=== PATIENT | female | born 1975 | race African-American/Black ===

== ENCOUNTER 2020-09-09 12:31 | Inpatient (IN) | payer MEDICARE, MEDICAID ==
[~2020-09-09] VITALS: Ht 160 cm; Wt 88.5 kg
[~2020-09-09 12:31] MED LIST: SULF1TAB48 PO; albuterol inhaler; seroquel; tapazole; wellbutrin
[2020-09-09] MEDS ORDERED: LIDOCAINE HCL/PF 1% 2ML VIAL ONE (13:08)
[2020-09-09] MEDS ORDERED: AZITHROMYCIN 500 MG in DEXT 5% WATER 250 ML IV SCH (13:15)
[2020-09-09] MEDS ORDERED: CEFTRIAXONE 1 G PREMIX 50 ML IV ONE (13:15)
[2020-09-09] MEDS ORDERED: ALBUTEROL (0.5%) 2.5MG/0.5ML NEB HHN ONE (13:15)
[2020-09-09 13:46] LABS: BG BASE EXCESS -2.1 mmol/L (-2.0-2.0); BG CARBOXYHEMOGLOBIN 0.6 % (0.5-1.5); BG DEOXYHEMOGLOBIN 0.8 % (0.0-5.0); BG HCO3 ACT 21.5 mmol/L (22.0-26.0); BG METHEMOGLOBIN 0.5 % (0.0-1.5); BG OXYGEN SATURATION 99.2 % (92.0-98.5); BG OXYHEMOGLOBIN 98.1 % (94.0-97.0); BG PCO2 31.9 mmHg (35.0-45.0); BG PH 7.447 (7.350-7.450); BG PO2 206.7 mmHg (75.0-100.0); BG SAMPLE SITE RIGHT RADIAL; BG TOTAL HEMOGLOBIN 8.1 g/dL (12.0-18.0); BG VENT MODE HHN NEBULIZER
[2020-09-09 14:34] LABS: HEMATOCRIT. 26.3 % (36.0-48.0); HEMOGLOBIN. 7.5 g/dL (12.0-16.0); MEAN CORPUSCULAR HEMOGLOBIN 17.3 pg (28.0-32.0); MEAN CORPUSCULAR VOLUME 60.5 fL (81.0-99.0); MEAN PLATELET VOLUME 8.9 fl (7.4-10.4); PLATELET 89 x1000/uL (130-400); RED BLOOD CELL COUNT 4.35 mill/uL (4.2-5.4); RED CELL DISTRIBUTION WIDTH 18.1 % (11.6-14.6)
[2020-09-09 14:40] LABS: CHLORIDE 113 mEq/L (98-107)
[2020-09-09 14:42] LABS: D-DIMER 0.34 mg/L FEU (<0.50); INR 1.1; PROTHROMBIN TIME 12.2 sec (9.6-11.0)
[2020-09-09 15:55] LABS: PLATELET ESTIMATE DECREASED
[2020-09-09] MEDS ORDERED: FUROSEMIDE 20MG/2ML VIAL IVP NR (16:00)
[2020-09-09] MEDS ORDERED: ALBUTEROL (0.5%) 2.5MG/0.5ML NEB HHN PRN (19:45)
[2020-09-09 20:00] VITALS: BP 142/66
[2020-09-09] MEDS: DOCUSATE SODIUM SUGAR FREE 100MG/10ML UDC PO SCH (20:00)
[2020-09-09 20:30] VITALS: BP 142/66
[2020-09-09] MEDS ORDERED: ONDANSETRON HCL 4MG/2ML INJ IV PRN (20:30)
[2020-09-09] MEDS ORDERED: ACETAMINOPHEN 325MG TABLET PO PRN (20:30)
[2020-09-09 20:38] LABS: TOTAL IRON BINDING CAPACITY 340 ug/dL (250-450)
[2020-09-09 20:51] LABS: T4 FREE > 8.00 ng/dL (0.76-1.46)
[2020-09-09] MEDS: METHYLPREDNISOLONE SOD SUCC 125 MG/2 ML VIAL IV SCH (22:14)
[2020-09-10] VITALS (11 sets, daily range): BP systolic 115–168; BP diastolic 56–92
[2020-09-10] MEDS: ALBUTEROL (0.083%) 2.5MG/3ML NEB HHN PRN ×2 (03:02→08:11)
[2020-09-10] MEDS: METHYLPREDNISOLONE SOD SUCC 125 MG/2 ML VIAL IV SCH (05:51)
[2020-09-10 05:58] LABS: HEMATOCRIT. 25.1 % (36.0-48.0); HEMOGLOBIN. 7.5 g/dL (12.0-16.0); MEAN CORPUSCULAR HEMOGLOBIN 17.6 pg (28.0-32.0); RED BLOOD CELL COUNT 4.26 mill/uL (4.2-5.4); RED CELL DISTRIBUTION WIDTH 18.3 % (11.6-14.6)
[2020-09-10] MEDS ORDERED: METHIMAZOLE 5MG TABLET PO SCH (09:00)
[2020-09-10] MEDS: DOCUSATE SODIUM SUGAR FREE 100MG/10ML UDC PO SCH (09:00)
[2020-09-10] MEDS ORDERED: ENOXAPARIN 40MG/0.4ML SYR SUBCUT SCH (09:00)
[2020-09-10 11:01] LABS: PLATELET ESTIMATE DECREASED
[2020-09-10 11:02] LABS: MEAN PLATELET VOLUME 9.4 fl (7.4-10.4); PLATELET 85 x1000/uL (130-400)
[2020-09-10] MEDS: METHIMAZOLE 5MG TABLET PO SCH ×2 (12:54→17:24)
[2020-09-10] MEDS: FUROSEMIDE 40MG/4ML VIAL IVP SCH ×2 (12:54→17:23)
[2020-09-10] MEDS: FERROUS SULFATE 325MG TABLET PO SCH ×2 (12:54→17:24)
[2020-09-10 13:02] LABS: CLARITY URINE CLEAR (CLEAR); COLOR URINE DARK YELLOW (YELLOW); KETONES URINE TRACE (NEGATIVE); LEUKOCYTE ESTERASE URINE NEGATIVE (NEGATIVE); NITRITE URINE NEGATIVE (NEGATIVE); OCCULT BLOOD URINE NEGATIVE (NEGATIVE); PH URINE 5.5 (4.5-8.0); PROTEIN URINE 1+ (NEGATIVE); SPECIFIC GRAVITY URINE 1.025 (1.005-1.030)
[2020-09-10] MEDS: LOSARTAN POTASSIUM 25 MG TABLET PO SCH (14:00)
[2020-09-10] MEDS: CEFTRIAXONE 1,000 MG in DEXTROSE 5% WATER 50 ML IV SCH (14:00)
[2020-09-10 18:01] LABS: FOLIC ACID (FOLATE) SERUM 6.8 ng/mL (>5.38)
[2020-09-10] MEDS ORDERED: GUAIFENESIN-DM 200MG-20MG/10ML UDC PO PRN (19:15)
[2020-09-10] MEDS: PREDNISONE 20MG TABLET PO SCH (22:09)
[2020-09-10 23:37] LABS: HEMATOCRIT 27.4 % (36.0-48.0); HEMOGLOBIN 8.2 g/dL (12.0-16.0)
[2020-09-11] VITALS: BP 113/59
[2020-09-11] MEDS: IPRATROPIUM/ALBUTEROL 0.5-3(2.5)MG/3ML NEB HHN SCH ×3 (02:40→20:44)
[2020-09-11 04:00] VITALS: BP 136/70
[2020-09-11] MEDS: FUROSEMIDE 40MG/4ML VIAL IVP SCH ×2 (06:06→17:37)
[2020-09-11] MEDS: FERROUS SULFATE 325MG TABLET PO SCH ×3 (08:03→17:37)
[2020-09-11] MEDS: PANTOPRAZOLE SODIUM 40 MG/VIAL IV SCH (08:38)
[2020-09-11] MEDS: PREDNISONE 20MG TABLET PO SCH ×2 (08:38→17:37)
[2020-09-11] MEDS: LOSARTAN POTASSIUM 25 MG TABLET PO SCH (08:38)
[2020-09-11] MEDS: DOCUSATE SODIUM SUGAR FREE 100MG/10ML UDC PO SCH (08:38)
[2020-09-11] MEDS: METHIMAZOLE 5MG TABLET PO SCH ×3 (08:38→17:37)
[2020-09-11 12:00] VITALS: BP 132/73
[2020-09-11] MEDS: CEFTRIAXONE 1,000 MG in DEXTROSE 5% WATER 50 ML IV SCH (13:37)
[2020-09-11 16:00] VITALS: BP 139/75
[2020-09-11 16:43] LABS: CHLORIDE 113 mEq/L (98-107)
[2020-09-11 16:53] LABS: INR 1.1; PROTHROMBIN TIME 12.1 sec (9.6-11.0)
[2020-09-11 18:18] LABS: HEMATOCRIT. 30.8 % (36.0-48.0); MEAN CORPUSCULAR VOLUME 61.6 fL (81.0-99.0); RED BLOOD CELL COUNT 4.99 mill/uL (4.2-5.4); RED CELL DISTRIBUTION WIDTH 20.1 % (11.6-14.6)
[2020-09-11 19:35] LABS: PLATELET ESTIMATE SLIGHTLY DECREASED
[2020-09-11 20:00] VITALS: BP 146/87
[2020-09-11 20:55] LABS: MEAN PLATELET VOLUME 9.3 fl (7.4-10.4); PLATELET 110 x1000/uL (130-400)
[2020-09-11] MEDS: METOPROLOL TARTRATE 25MG TABLET PO SCH (21:03)
[2020-09-12] VITALS: BP 154/77
[2020-09-12] MEDS: IPRATROPIUM/ALBUTEROL 0.5-3(2.5)MG/3ML NEB HHN SCH ×4 (01:29→21:37)
[2020-09-12 04:00] VITALS: BP 130/88
[2020-09-12] MEDS: FUROSEMIDE 40MG/4ML VIAL IVP SCH ×2 (05:43→18:15)
[2020-09-12 08:00] VITALS: BP 131/76
[2020-09-12] MEDS: PANTOPRAZOLE SODIUM 40 MG/VIAL IV SCH (09:03)
[2020-09-12] MEDS: LOSARTAN POTASSIUM 25 MG TABLET PO SCH (09:04)
[2020-09-12] MEDS: METHIMAZOLE 5MG TABLET PO SCH ×3 (09:04→18:15)
[2020-09-12] MEDS: METOPROLOL TARTRATE 25MG TABLET PO SCH ×2 (09:04→21:22)
[2020-09-12] MEDS: PREDNISONE 20MG TABLET PO SCH ×2 (09:04→18:15)
[2020-09-12] MEDS: DOCUSATE SODIUM SUGAR FREE 100MG/10ML UDC PO SCH (09:05)
[2020-09-12] MEDS: FERROUS SULFATE 325MG TABLET PO SCH ×3 (09:07→18:15)
[2020-09-12] MEDS ORDERED: CYANOCOBALAMIN 1000MCG TABLET PO SCH (09:15)
[2020-09-12] MEDS ORDERED: LIDOCAINE HCL 1% 20ML VIAL (Pyxis) INJ ONE (10:19)
[2020-09-12 12:00] VITALS: BP 134/80
[2020-09-12] MEDS ORDERED: IOHEXOL-350 100 ML BOTTLE ONE (13:34)
[2020-09-12 14:05] LABS: HCG SCREEN NEGATIVE
[2020-09-12 14:16] LABS: CHLORIDE 108 mEq/L (98-107)
[2020-09-12 14:32] LABS: HAPTOGLOBIN 99 mg/dL (30-200)
[2020-09-12] MEDS: SILDENAFIL CITRATE 20MG TABLET PO SCH ×2 (15:33→21:22)
[2020-09-12] MEDS: CEFTRIAXONE 1,000 MG in DEXTROSE 5% WATER 50 ML IV SCH (15:33)
[2020-09-12 16:00] VITALS: BP 135/78
[2020-09-12 16:02] LABS: HEMATOCRIT. 31.6 % (36.0-48.0); HEMOGLOBIN. 9.4 g/dL (12.0-16.0); MEAN CORPUSCULAR HEMOGLOBIN 18.3 pg (28.0-32.0); MEAN CORPUSCULAR VOLUME 61.7 fL (81.0-99.0); PLATELET 124 x1000/uL (130-400); RED BLOOD CELL COUNT 5.11 mill/uL (4.2-5.4); RED CELL DISTRIBUTION WIDTH 19.9 % (11.6-14.6)
[2020-09-12 18:06] LABS: NUCLEATED RED BLOOD CELLS 1 /100 WBC; PLATELET ESTIMATE SLIGHTLY DECREASED
[2020-09-12 20:00] VITALS: BP 123/64
[2020-09-13] VITALS: BP 115/63
[2020-09-13] MEDS: IPRATROPIUM/ALBUTEROL 0.5-3(2.5)MG/3ML NEB HHN SCH ×4 (02:01→20:20)
[2020-09-13 04:00] VITALS: BP 110/63
[2020-09-13 05:09] LABS: HIV SCREEN 4G Non Reactive (Non Reactive)
[2020-09-13] MEDS: FUROSEMIDE 40MG/4ML VIAL IVP SCH ×2 (06:46→17:15)
[2020-09-13] MEDS: SILDENAFIL CITRATE 20MG TABLET PO SCH ×3 (06:46→21:35)
[2020-09-13 08:00] VITALS: BP 118/58
[2020-09-13] MEDS: METOPROLOL TARTRATE 25MG TABLET PO SCH ×2 (09:00→21:36)
[2020-09-13] MEDS: LOSARTAN POTASSIUM 25 MG TABLET PO SCH (09:00)
[2020-09-13] MEDS: DOCUSATE SODIUM SUGAR FREE 100MG/10ML UDC PO SCH (09:00)
[2020-09-13] MEDS: PANTOPRAZOLE SODIUM 40 MG/VIAL IV SCH (09:09)
[2020-09-13] MEDS: FERROUS SULFATE 325MG TABLET PO SCH ×3 (09:10→17:40)
[2020-09-13] MEDS: PREDNISONE 20MG TABLET PO SCH ×2 (09:10→17:00)
[2020-09-13] MEDS: METHIMAZOLE 5MG TABLET PO SCH ×3 (09:10→17:00)
[2020-09-13 12:00] VITALS: BP 120/60
[2020-09-13] MEDS: CEFTRIAXONE 1,000 MG in DEXTROSE 5% WATER 50 ML IV SCH (12:54)
[2020-09-13 16:00] VITALS: BP 113/62
[2020-09-13 20:00] VITALS: BP 138/69
[2020-09-14] VITALS: BP 113/59
[2020-09-14] MEDS: IPRATROPIUM/ALBUTEROL 0.5-3(2.5)MG/3ML NEB HHN SCH (00:19)
[2020-09-14 04:00] VITALS: BP 147/79
[2020-09-14] MEDS: SILDENAFIL CITRATE 20MG TABLET PO SCH (06:25)
[2020-09-14] MEDS: FUROSEMIDE 40MG/4ML VIAL IVP SCH (06:25)
[2020-09-14 08:00] VITALS: BP 109/51
[2020-09-14 08:00] LABS: CHLORIDE 108 mEq/L (98-107)
[2020-09-14 08:01] LABS: HEMATOCRIT. 32.4 % (36.0-48.0); HEMOGLOBIN. 9.7 g/dL (12.0-16.0); MEAN CORPUSCULAR HEMOGLOBIN 18.2 pg (28.0-32.0); MEAN CORPUSCULAR VOLUME 60.6 fL (81.0-99.0); MEAN PLATELET VOLUME 9.4 fl (7.4-10.4); RED BLOOD CELL COUNT 5.34 mill/uL (4.2-5.4); RED CELL DISTRIBUTION WIDTH 19.2 % (11.6-14.6)
[2020-09-14] MEDS: PANTOPRAZOLE SODIUM 40 MG/VIAL IV SCH (08:02)
[2020-09-14] MEDS: METHIMAZOLE 5MG TABLET PO SCH (08:03)
[2020-09-14] MEDS: FERROUS SULFATE 325MG TABLET PO SCH (08:06)
[2020-09-14] MEDS: DOCUSATE SODIUM SUGAR FREE 100MG/10ML UDC PO SCH (09:00)
[2020-09-14] MEDS: METOPROLOL TARTRATE 25MG TABLET PO SCH (09:00)
[2020-09-14] MEDS ORDERED: PREDNISONE 20MG TABLET PO SCH (09:00)
[2020-09-14] MEDS: LOSARTAN POTASSIUM 25 MG TABLET PO SCH (09:00)
[2020-09-14] MEDS ORDERED: POTASSIUM CHLORIDE 20MEQ TABLET SR PO SCH (09:15)
[2020-09-14] MEDS ORDERED: LOSA25TA3 PO (09:26)
[2020-09-14] MEDS ORDERED: P20 PO (09:26)
[2020-09-14] MEDS ORDERED: FERR325T23 PO (09:26)
[2020-09-14] MEDS ORDERED: REV20 PO (09:26)
[2020-09-14] MEDS ORDERED: TAP5 PO (09:26)
[2020-09-14] MEDS ORDERED: CYAN-50 PO (09:26)
[2020-09-14] MEDS ORDERED: METO25TA6 PO (09:26)
[2020-09-14] MEDS ORDERED: FUROSEMIDE 40MG TABLET PO SCH (09:30)
[2020-09-14 10:08] VITALS: BP 109/51
[2020-09-14 13:25] LABS: PLATELET ESTIMATE NORMAL
[2020-09-14 13:27] LABS: PLATELET 138 x1000/uL (130-400)
[2020-09-15 08:10] LABS: HGB A2 2.6 % (1.8-3.2)
== END 2020-09-14 11:20 | disposition home or self-care (01) | DRG 291 ==
LOC: ER 12:31 → 8WST 15:55 → ENRESERV 19:15
PROVIDERS: ADMIT Internal Medicine; ATTEND Internal Medicine
PROC: 30233N1 Transfusion of Nonautologous Red Blood Cells into Peripheral Vein, Percutaneous Approach (ICD-10-PCS; principal; 2020-09-10)
PROC: 02HV33Z Insertion of Infusion Device into Superior Vena Cava, Percutaneous Approach (ICD-10-PCS; 2020-09-12)
PROC: B548ZZA Ultrasonography of Superior Vena Cava, Guidance (ICD-10-PCS; 2020-09-12)
PROC: B5181ZA Fluoroscopy of Superior Vena Cava using Low Osmolar Contrast, Guidance (ICD-10-PCS; 2020-09-12)
DX: I50.810 Right heart failure, unspecified (principal); J96.20 Acute and chronic respiratory failure, unspecified whether with hypoxia or hypercapnia; J45.901 Unspecified asthma with (acute) exacerbation; R17 Unspecified jaundice; D61.818 Other pancytopenia; D50.9 Iron deficiency anemia, unspecified; E03.9 Hypothyroidism, unspecified; I27.21 Secondary pulmonary arterial hypertension; E66.01 Morbid (severe) obesity due to excess calories; E88.09 Other disorders of plasma-protein metabolism, not elsewhere classified; E05.20 Thyrotoxicosis with toxic multinodular goiter without thyrotoxic crisis or storm; F41.9 Anxiety disorder, unspecified; H54.8 Legal blindness, as defined in USA; I27.81 Cor pulmonale (chronic); R00.0 Tachycardia, unspecified; Z82.49 Family history of ischemic heart disease and other diseases of the circulatory system; Z90.49 Acquired absence of other specified parts of digestive tract; Z79.899 Other long term (current) drug therapy; Z80.3 Family history of malignant neoplasm of breast; Z81.3 Family history of other psychoactive substance abuse and dependence; Z81.8 Family history of other mental and behavioral disorders; Z82.3 Family history of stroke; Z85.41 Personal history of malignant neoplasm of cervix uteri; Z91.19 Patient's noncompliance with other medical treatment and regimen; Z68.34 Body mass index [BMI] 34.0-34.9, adult; H40.9 Unspecified glaucoma; H05.20 Unspecified exophthalmos
CPT/HCPCS: 36415; 36573; 36600; 71045; 71275; 76536; 80048; 80053; 80061; 81003; 82270; 82375; 82533; 82607; 82728; 82746; 82805; 83010; 83021; 83036; 83520; 83540; 83550; 83615; 83735; 83880; 84439; 84443; 84480; 84481; 84484; 84703; 85014; 85018; 85025; 85044; 85049; 85379; 85384; 85660; 86850; 86880; 86900; 86920; 87389; 87426; 93005; 93306; 94640; 99285; C1725; C1769; C9113; J0456; J0696; J1940; J2930; J3490; J7060; J7512; P9016; Q9967

== ENCOUNTER → 2020-10-05 | Outpatient (CLI) | payer MEDICARE, MEDICAID ==
[~2020-10-05] MED LIST changes: +CYAN-50 PO; +FERR325T23 PO; +LOSA25TA3 PO; +METO25TA6 PO; +P20 PO; +REV20 PO; -SULF1TAB48 PO; +TAP5 PO
== END | disposition home or self-care (01) ==
LOC: NM 07:47
PROVIDERS: ATTEND Internal Medicine Endocrinology, Diabetes & Metabolism
DX: E04.2 Nontoxic multinodular goiter (principal)
CPT/HCPCS: 78014; A9516

== ENCOUNTER → 2020-10-27 | Outpatient (CLI) | payer MEDICARE, MEDICAID | END | disposition home or self-care (01) | LOC: NM 07:32 | PROVIDERS: ATTEND Internal Medicine Endocrinology, Diabetes & Metabolism | DX: E05.90 Thyrotoxicosis, unspecified without thyrotoxic crisis or storm (principal) | CPT/HCPCS: 79005; A9517 ==

== ENCOUNTER 2021-03-21 20:15 | Emergency (ER) | payer MEDICARE, MEDICAID ==
[~2021-03-21] VITALS: Ht 170.2 cm; Wt 82.0 kg
[2021-03-21] MEDS ORDERED: ONDANSETRON HCL 4MG/2ML INJ IV STA (20:27)
[2021-03-21] MEDS ORDERED: FENTANYL CITRATE/PF 50MCG/ML 2ML VIAL IV ONE (20:30)
[2021-03-21 21:52] LABS: CHLORIDE 109 mEq/L (98-107)
[2021-03-21 21:54] LABS: HCG SCREEN NEGATIVE
[2021-03-21 21:57] LABS: HEMATOCRIT. 29.7 % (36.0-48.0); HEMOGLOBIN. 9.1 g/dL (12.0-16.0); MEAN CORPUSCULAR HEMOGLOBIN 20.5 pg (28.0-32.0); MEAN CORPUSCULAR VOLUME 67.3 fL (81.0-99.0); MEAN PLATELET VOLUME 9.2 fl (7.4-10.4); PLATELET 162 x1000/uL (130-400); RED BLOOD CELL COUNT 4.41 mill/uL (4.2-5.4); RED CELL DISTRIBUTION WIDTH 16.2 % (11.6-14.6)
[2021-03-21 23:05] LABS: PLATELET ESTIMATE NORMAL
[2021-03-22 00:31] LABS: T4 FREE 4.59 ng/dL (0.76-1.46)
[2021-03-22 01:29] LABS: HEMATOCRIT 26.2 % (36.0-48.0); HEMOGLOBIN 8.2 g/dL (12.0-16.0); MEAN CORPUSCULAR HEMOGLOBIN 20.7 pg (28.0-32.0); MEAN CORPUSCULAR VOLUME 66.2 fL (81.0-99.0); PLATELET 128 x1000/uL (130-400); RED BLOOD CELL COUNT 3.96 mill/uL (4.2-5.4); RED CELL DISTRIBUTION WIDTH 15.5 % (11.6-14.6)
[2021-03-22] MEDS ORDERED: HYDROCODONE/ACETAMINOPHEN 5/325MG TABLET PO ONE (01:45)
[2021-03-22] MEDS ORDERED: HYDR-4001 MT (02:30)
[2021-03-22] MEDS ORDERED: FENTANYL CITRATE/PF 50MCG/ML 2ML VIAL IV NR (02:30)
[2021-03-22] MEDS ORDERED: ACETAMINOPHEN 500MG TABLET PO ONE (03:00)
[2021-03-22 05:37] VITALS: BP 108/50
[2021-03-23] MEDS ORDERED: NAPR-681 PO (03:30)
== END 2021-03-22 05:38 | disposition home or self-care (01) ==
LOC: ER 20:15
DX: M25.512 Pain in left shoulder (principal); I10 Essential (primary) hypertension; E03.9 Hypothyroidism, unspecified; I27.20 Pulmonary hypertension, unspecified; H54.7 Unspecified visual loss; Z88.5 Allergy status to narcotic agent
CPT/HCPCS: 36415; 71045; 73030; 80053; 83880; 84439; 84443; 84480; 84481; 84484; 84703; 85025; 85027; 93005; 96374; 96375; 96376; 99285; J2405; J3010; A4565

== ENCOUNTER 2021-03-23 01:59 | Emergency (ER) | payer MEDICARE, MEDICAID ==
[~2021-03-23] VITALS: Ht 160 cm; Wt 94.0 kg
[~2021-03-23 01:59] MED LIST changes: +HYDR-4001 MT
[2021-03-23] MEDS ORDERED: HYDROCODONE/ACETAMINOPHEN 5/325MG TABLET PO STA (02:55)
[2021-03-23] MEDS ORDERED: KETOROLAC 60MG/2ML VIAL IM STA (02:55)
[2021-03-23 03:04] VITALS: BP 143/68
[2021-03-23] MEDS ORDERED: NAPR-681 PO (03:30)
== END 2021-03-23 04:14 | disposition home or self-care (01) ==
LOC: ER 01:59
DX: M25.512 Pain in left shoulder (principal); M75.32 Calcific tendinitis of left shoulder; H54.7 Unspecified visual loss; J45.909 Unspecified asthma, uncomplicated; I50.9 Heart failure, unspecified; E03.9 Hypothyroidism, unspecified; Z88.5 Allergy status to narcotic agent; Z90.49 Acquired absence of other specified parts of digestive tract; Z98.890 Other specified postprocedural states
CPT/HCPCS: 96372; 99283; J1885

== ENCOUNTER → 2021-12-25 | Outpatient (CLI) | payer MEDICARE, MEDICAID ==
[~2021-12-25] MED LIST changes: +CHOL400D7 MT; +FURO80TA3 PO; +METH-371 PO; +NAPR-681 PO; -TAP5 PO
== END | disposition home or self-care (01) ==
LOC: LAB 12:06
PROVIDERS: ATTEND Specialist
DX: Z20.822 Contact with and (suspected) exposure to COVID-19 (principal)
CPT/HCPCS: 87426; C9803

== ENCOUNTER → 2021-12-27 | Day surgery (SDC) | payer MEDICARE, MEDICAID ==
[~2021-12-27] MED LIST changes: +ACETAMINOPHEN 325MG TABLET PO PRN; +ATROPINE SULFATE 1MG/10ML SYR IV PRN; +FENTANYL CITRATE/PF 50MCG/ML 2ML VIAL ONE; +HEPARIN 1000 UNITS/ML 10ML ONE; +IODIXANOL 320MG/ML 100 ML BOTTLE IV ONE; +LIDOCAINE HCL 1% 10 MG/ML 10ML VIAL ONE; +MIDAZOLAM HCL 2 MG/2 ML VIAL ONE; +ONDANSETRON HCL 4MG/2ML INJ IV PRN
== END | disposition home or self-care (01) ==
LOC: CCL 08:30
PROVIDERS: ATTEND Specialist
DX: R07.9 Chest pain, unspecified (principal); I27.20 Pulmonary hypertension, unspecified; E66.9 Obesity, unspecified; Z79.899 Other long term (current) drug therapy; Z98.890 Other specified postprocedural states; Z82.49 Family history of ischemic heart disease and other diseases of the circulatory system; Z88.6 Allergy status to analgesic agent
CPT/HCPCS: 93460; 99152; 99153; C1760; C1769; C1887; C1893; J1644; J2250; J3010; J3490; Q9967; G0500

== ENCOUNTER 2022-10-20 09:39 | Emergency (ER) | payer MEDICARE, MEDICAID ==
[~2022-10-20] VITALS: Ht 167.6 cm; Wt 105.0 kg
[~2022-10-20 09:39] MED LIST changes: -ACETAMINOPHEN 325MG TABLET PO PRN; -ATROPINE SULFATE 1MG/10ML SYR IV PRN; -FENTANYL CITRATE/PF 50MCG/ML 2ML VIAL ONE; -HEPARIN 1000 UNITS/ML 10ML ONE; -IODIXANOL 320MG/ML 100 ML BOTTLE IV ONE; -LIDOCAINE HCL 1% 10 MG/ML 10ML VIAL ONE; -MIDAZOLAM HCL 2 MG/2 ML VIAL ONE; -ONDANSETRON HCL 4MG/2ML INJ IV PRN
[2022-10-20 10:10] VITALS: BP 125/48
[2022-10-20] MEDS ORDERED: EPINEPHRINE 1:1000 1 MG/ML AMP IM ONE (10:15)
[2022-10-20] MEDS ORDERED: FAMOTIDINE 20MG TABLET PO ONE (10:15)
[2022-10-20] MEDS ORDERED: PREDNISONE 20MG TABLET PO ONE (10:15)
[2022-10-20] MEDS ORDERED: DIPH25CA83 MT (12:58)
[2022-10-20] MEDS ORDERED: FAMO-135 MT (12:58)
[2022-10-20] MEDS ORDERED: P50 MT (12:58)
[2022-10-20] MEDS ORDERED: EPIN0.3P3 IM (12:58)
== END 2022-10-20 13:30 | disposition home or self-care (01) ==
LOC: ER 10:13
DX: R06.02 Shortness of breath (principal); I11.0 Hypertensive heart disease with heart failure; I50.9 Heart failure, unspecified; E11.9 Type 2 diabetes mellitus without complications; Z86.39 Personal history of other endocrine, nutritional and metabolic disease; Z79.899 Other long term (current) drug therapy; Z90.49 Acquired absence of other specified parts of digestive tract
CPT/HCPCS: 96372; 99283; J3490; J7512

== ENCOUNTER 2022-10-23 09:33 | Emergency (ER) | payer MEDICARE, MEDICAID ==
[~2022-10-23] VITALS: Ht 157.5 cm; Wt 101.0 kg
[~2022-10-23 09:33] MED LIST changes: +DIPH25CA83 MT; +EPIN0.3P3 IM; +FAMO-135 MT; +P50 MT
[2022-10-23 09:41] VITALS: BP 140/76
[2022-10-23] MEDS ORDERED: DIPH28.34 TP (10:44)
[2022-10-23] MEDS ORDERED: DIPHENHYDRAMINE HCL/ZINC ACET 28 GM CREAM TOP ONE (11:00)
== END 2022-10-23 11:41 | disposition home or self-care (01) ==
LOC: ER 09:55
DX: T78.40XA Allergy, unspecified, initial encounter (principal); L29.9 Pruritus, unspecified; J45.909 Unspecified asthma, uncomplicated; I11.0 Hypertensive heart disease with heart failure; I50.9 Heart failure, unspecified; Z88.5 Allergy status to narcotic agent; Z88.8 Allergy status to other drugs, medicaments and biological substances; Z90.89 Acquired absence of other organs; X58.XXXA Exposure to other specified factors, initial encounter
CPT/HCPCS: 99282